=== PATIENT | female | born 1960 | race Caucasian/White ===

== ENCOUNTER 2021-06-24 19:11 | Emergency (ER) | payer BC ==
[2021-06-24 19:33] LABS: HEMOGLOBIN 17.1 gm/dl (12.3-15.3); RED BLOOD COUNT 5.24 M/UL (4.00-5.10); WHITE BLOOD COUNT 11.9 K/UL (4.5-11.0)
[2021-06-24 20:09] LABS: BUN/CREATININE RATIO 29 (0-10)
[2021-06-24] MEDS ORDERED: ZOFRAN ODT 4 MG4 MG PO (21:30)
== END 2021-06-24 23:30 | disposition home or self-care (01) ==
LOC: ER1 19:11
PROVIDERS: Physician Assistant
DX: E86.0 Dehydration (principal); R10.817 Generalized abdominal tenderness; R11.0 Nausea; R19.7 Diarrhea, unspecified; E78.5 Hyperlipidemia, unspecified; I10 Essential (primary) hypertension
CPT/HCPCS: 80053; 81001; 85025; 96374; 99284; J2405; Q9967